=== PATIENT | male | born 1945 | race Caucasian/White ===

== ENCOUNTER 2019-06-25 11:10 | Inpatient (IN) | payer OTHER ==
[~2019-06-25] VITALS: Ht 182.9 cm; Wt 108.0 kg
--- NOTE | 2019-06-25 11:10 | NUR ---
PATIENT TO ROOM VIA EMS AND PHYSICIAN NOTIFID OF PATIENT STATUS
[2019-06-25 11:48] LABS: HEMATOCRIT 36.7 % (39.0-50.0); HEMOGLOBIN 12.1 g/dl (14.0-18.0); IMMATURE GRANULOCYTES 0.9 % (0.0-5.0); MEAN CELL VOLUME 88.6 fL CALC (80.0-100.0); MEAN CORPUSCULAR HGB 29.2 pG CALC (26.0-32.0); NEUT# 13.46 thou/uL (1.82-7.42); RED BLOOD COUNT 4.14 mill/uL (4.70-6.10); RED CELL DISTRI WIDTH 16.3 % (11.5-15.5)
[2019-06-25 12:14] LABS: ALBUMIN 3.7 g/dL (3.2-5.0); ALKALINE PHOSPHATASE 103 u/l (38-126); ANION GAP 12 (6-22 (CALC)); BILIRUBIN, TOTAL 0.7 mg/dL (0.0-1.4); BUN 34 mg/dL (8-23); BUN/CREATININE RATIO 29 (12-20 (CALC)); CARBON DIOXIDE 26 mmol/l (22-30); CHLORIDE 101 mmol/l (95-108); CREATININE 1.1 mg/dL (0.7-1.3); GFR > 60 ML/MIN (>=60 (CALC)); GFR FOR AFR.AMER. > 60 ML/MIN (>=60 (CALC)); LIPASE 21 u/l (23-300); POTASSIUM 4.5 mmol/l (3.5-5.1); SGOT/AST 21 u/l (19-48); SODIUM 134 mmol/l (137-146); TOTAL PROTEIN 6.8 g/dL (6.3-8.2)
--- NOTE | 2019-06-25 12:30 | NUR ---
PT PRESENTS FROM [facility] HOME WITH SOB. HE STATES THAT IT STARTED TODAY. HE HAS BI EDEMA IN LOWER EXTREMETIES THAT ARE OOZING EXUDATE. THEY ARE RED AND HOT TO THE TOUCH. PT STATES NOT KNOWING HOW LONG HE HAS HAD THEM THAT WAY. PT IN TRIPOD POSITION. LUNGS CRACKLES LOWER LOBES BI. SPO2 IN LOW 80s W/O O2. O2 AT 3 L GOING. WILL CONTINUE TO MONITOR.
--- NOTE | 2019-06-25 12:35 | NUR ---
AN ULCER OF 3 X3CM NOTED IN THE INNER RIGHT ANKLE. IT APPEARS TO BE OOZING WELL
--- NOTE | 2019-06-25 13:33 | NUR ---
PT SWABBED FOR COVID 19 VIRUS
--- NOTE | 2019-06-25 14:15 | NUR ---
ASSISTED PT TO URINATE IN URINAL. PT HAD SATURATED BRIEFS AND UNDERGARMETS. PT CHANGED INTO ANOTHER GOWN AND LINENS WELL.
[2019-06-25] MEDS ORDERED: PLAVIX75 MG PO (14:36)
[2019-06-25] MEDS ORDERED: METOPROL TAR25 MG PO (14:36)
[2019-06-25] MEDS ORDERED: LASIX 40 MG TAB40 MG PO (14:36)
[2019-06-25] MEDS ORDERED: LOSARTAN POTASS25 MG PO (14:37)
[2019-06-25 14:45] LABS: URINE BILIRUBIN - DIPSTICK NEGATIVE (NEGATIVE); URINE BLOOD DIPSTICK LARGE (NEGATIVE); URINE COLOR ORANGE; URINE GLUCOSE - DIPSTICK NEGATIVE (NEGATIVE); URINE KETONE NEGATIVE (NEGATIVE); URINE LEUK ESTERASE NEGATIVE (NEGATIVE); URINE NITRITE - DIPSTICK NEGATIVE (Negative); URINE PROTEIN - DIPSTICK 30 mg/dL (NEG-TRACE); URINE UROBILINOGEN - DIPSTICK 0.2 E.U./dL (0.2)
[2019-06-25 14:55] LABS: URINE RBC 50-100 RBC/hpf (0-5)
[2019-06-25 14:56] LABS: URINE BACTERIA FEW hpf; URINE MUCUS FEW hpf (NONE-FEW); URINE SQUAMOUS EPITHELIAL CELL FEW EPI/hpf (0-FEW)
--- NOTE | 2019-06-25 15:33 | NUR ---
PT RECONNECTED TO MONITORING EQUIPMENT, CALL LIGHT WITHIN REACH AND OFFICERS AT BEDSIDE. PT RESTING WITH EYES CLOSED. FLUIDS FLOWING IN PATENT IV
--- NOTE | 2019-06-25 16:30 | NUR ---
PT RESTING ON STRETCHER WITH CALL LIGHT WITHIN REACH AND OFFICERS AT BEDSIDE.
--- NOTE | 2019-06-25 17:21 | NUR ---
PT PREMED FOR CT. PT TOLERATED WELL. RECONNECTED TO FLUIDS. DENIES ANY NEEDS
--- NOTE | 2019-06-25 18:30 | NUR ---
PREPARING PT TO GO TO CT
--- NOTE | 2019-06-25 19:13 | NUR ---
PT RESTING WITH EYES CLOSED. OFFICERS AT BEDSIDE AND CALL LIGHT WITHIN REACH
--- NOTE | 2019-06-25 20:30 | NUR ---
PT RESTING WITH EYES CLOSED AND OFFICERS AT BEDSIDE. CALL LIGHT WITHIN REACH
--- NOTE | 2019-06-25 21:05 | NUR ---
UPON REASSESSMENT TEMP HAS DECREASED TO 98.9 F.
--- NOTE | 2019-06-25 21:43 | NUR ---
REPORT LELIA VILLA IN MED SURG
--- NOTE | 2019-06-25 21:50 | NUR ---
PT TRANSPORTED STABLE AND IN NO DISTRESS TO MED SURG WITH OFFICERS AT BEDSIDE. PT CARE ASSUMED TO FRAYA Admission Note Report Given to: Transported by: Wheelchair X Stretcher Transported with: X Nurse Transporter X Patent IV X O2 X Apartment Rental Agent Location: ICU X MS2
--- NOTE | 2019-06-25 21:55 | NUR ---
PT ARRIVED TO MED SURG UNIT VIA STRETCHER ACCOMPANIED BY ED NURSE. PT APPEARS TO BE IN STABLE CONDITION. PT WAS UNABLE TO SELF AMBULATE TO THE BED. SLIDER USED TO TRANSFER PT. NO DRESSING APPLIED TO RLE, ULCERS OBSERVED TO BE OOZING AT THIS TIME. V/S ASSESSED AND PT ORIENTED TO ROOM, CALL SYSTEM, LIGHTS, BED AND PO FLUIDS PROVIDED. GUARDS X2 AT BEDSIDE, ONE GUARD LEFT ROOM WHILE WE WERE IN ROOM TO "WARM UP HER FOOD." PT ASSESSMENT COMPLETED AT THIS TIME. DENIES COUGH, DENIES DIAHRREA, REPORTS 1X LARGE AMOUNT OF EMESIS EARLIER THIS DAY. DENIES N/V AT THIS TIME.
[2019-06-25 22:10] VITALS: BP 117/49
[2019-06-26] VITALS (7 sets, daily range): BP systolic 91–104; BP diastolic 35–44
--- NOTE | 2019-06-26 00:15 | NUR ---
PT MEDICATED FOR MILD PAIN IN LLE. NON-ADHERANT DRESSING AND RLE WRAPPED W/GAUZE PER PT REQUEST AND FOR SEROSANGUINEOUS DRAINAGE. HE STATES THAT IT "SMITH WHEN THE AIR CAN GET TO IT." PICTURES HAVE BEEN TAKEN AND PLACED IN CHART. PT ASSISTED USING URINAL. GUARDS X2 AT BEDSIDE, ONE STEPPED OUT WHILE WE WERE IN THE ROOM. PT DENIES NEED FOR ADDITIONAL PO FLUIDS OR SNACK OF ANY KIND. WATER PROVIDED. DENIES ANY DISTRESS AT THIS TIME. REPORTS MILD PAIN AND ASKED FOR MILD PAIN MEDICATION, TYELENOL PROVIDED.
--- NOTE | 2019-06-26 07:15 | NUR ---
CHANGE OF SHIFT REPORT RECEIVED FROM DIONE VILLA.
--- NOTE | 2019-06-26 09:30 | NUR ---
PT'S BP AT 98/42. NONI ANDERSON NOTIFIED. CABIN FURNISHINGS INSTALLER ADVISED TO HOLD BP MEDS, RECHECK BP IN AN HOUR OR TWO AND ADMINISTER BP MEDS AT THAT TIME IF BP INCREASES. PT ASSITED OUT OF SHOWER. WOUND CARE CARRIED OUT TO LEFT LOWER LEG. PT TOLERATED PROCEDURE. CABIN FURNISHINGS INSTALLER WILL CONTINUE TO MONITOR
--- NOTE | 2019-06-26 12:00 | NUR ---
PT RESTING COMFORTABLY IN ROOM. NO S/S OF DISTRESS. FLIGHT STEWARD WILL CONTINUE TO MONITOR
--- NOTE | 2019-06-26 15:00 | NUR ---
S: ELISABETH CUMMINGS is a 74 M who presents with pneumonia and cellulitis. He has a history of hypertension, CAD, osteoarthritis, aortic valve replacement. All medications in patient's chart were reviewed. O: VS: BP 92/42 mmhg, P 92 bpm, RR 20 breaths/min, T 97.8 F W 107.955 kg, HT 73 in, Scr 1.1 mg/dl, CrCl 88.6 ml/min A: Blood culture is pending. P: Patient is on cefepime 1g IV q12h. Vancomycin ordered for pharmacy to dose. Start Vancomycin 1g IV Q8H. Vancomycin trough is drawn before the 4th dose on 06/26 @ 1300. Vancomycin goal trough is between 15-20 mcg/ml. Pharmacy will follow and or advise on antibiotics use as needed.
--- NOTE | 2019-06-26 16:00 | NUR ---
PT RESTING COMFORTABLY IN ROOM. NO ADVERSE REACTIONS TO ANTIBIOTICS NOTED. NEW WOUND CARE ORDER IN CHART. PT IS ABLE TO MAKE HIS NEEDS KNOWN. ASSISTANT CLINICAL DIRECTOR WILL CONTINUE TO MONITOR.
--- NOTE | 2019-06-26 19:15 | NUR ---
DISCUSSED WITH BORING MACHINE SET UP OPERATOR, GUARDS TO WEAR N95 MASKS, MASKS AND FACESHIELDS PROVIDED BY BORING MACHINE SET UP OPERATOR. PT RESTING IN BED, NO SIGNS OF DISTRESS NOTED, RESP EVEN AND UNLABORED, DISCUSSED POC, DRESSING TO LLE CDI. ASSESSMENT COMPLETED, CALL LIGHT IN REACH,CONTINUE TO MONITOR.
--- NOTE | 2019-06-26 21:25 | NUR ---
PT RESTING IN BED, C/O PAIN TO LLE, NOT TIME FOR TYLENOL PT STATES AT FACILITY PT RECEIVED IBUPROFEN 600 AND IT WORKED FOR HIM, NOTIFIED AND ORDER RECEIVED. PT MEDICATED PER APR, GUARDS X2 AT BEDSIDE, WILL RETURN WHEN IBUPROFEN PROFILED. CALL LIGHT IN REACH,CONTINUE TO MONITOR.
--- NOTE | 2019-06-26 22:10 | NUR ---
PT RESTING IN BED WATCHING TV, MEDICATED WITH IBUPROFEN GIVEN. PT VOICES NO OTHER NEEDS OR COMPLAINTS AT THIS TIME, CALL LIGHT IN REACH,CONTINUE TO MONITOR.
[2019-06-27] VITALS (7 sets, daily range): BP systolic 104–128; BP diastolic 39–54
--- NOTE | 2019-06-27 01:27 | NUR ---
IV ANTIBIOTIC INITIATED, PT VOICES NO NEEDS OR COMPLAINTS, PT WATCHING TV, GUARDS X2 AT BEDSIDE, CALL LIGHT IN REACH,CONTINUE TO MONITOR.
--- NOTE | 2019-06-27 08:30 | NUR ---
RECIEVED REPORT FROM Simran JEFFREY LPN. PT RESTING IN BED WATCHIING TV UPON ENTERING ROOM. ASSESMENT AND VITALS COMPLETE. BP 111/43, HR 82, O2 97% ON 2L. PT IS A/O X3. HEART RHYTHM NORMAL, LUNGS SOUNDS CLEAR, BOWEL SOUNDS ACTIVE IN ALL QUADRANTS. LAST BM WAS 06/26/19.RADIAL AND RIGHT PEDAL PULSES ARE STRONG WITH NORMAL CAPPILLARY REFILL. DRESSING CDI ON LEFT FOOT, UNABLE TO PALPATE FOR PULSE DUE TO DRESSING BUT NORMAL CAPILLARY REFILL. SKIN IS COOL AND DRY TO TOUCH, NO EDEMA. IV FLUSHED, SITE APPEARS HEALTHY AND PATENT.TELE IN PLACE. PT DESCRIBED A 5/10 PAIN IN LEFT LEG, MOTRIN GIVEN. COVID RAPID NEGATIVE WITH SWAB PENDING, ISOLATION PRECAUTIONS IN PLACE. PT DENIES ANY OTHER DISCOMFORTS AT THIS TIME. ALL SAFTEY PRECAUTIONS IN PLACE WITH CALL LIGHT IN REACH. WILL CONTINUE TO MONITOR.
[2019-06-27 11:22] LABS: HEMATOCRIT 32.2 % (39.0-50.0); HEMOGLOBIN 10.6 g/dl (14.0-18.0); MEAN CELL VOLUME 89.9 fL CALC (80.0-100.0); MEAN CORPUSCULAR HGB 29.6 pG CALC (26.0-32.0); MEAN CORPUSCULAR HGB CONC 32.9 g/dL CAL (32.0-36.0); RED BLOOD COUNT 3.58 mill/uL (4.70-6.10); RED CELL DISTRI WIDTH 16.1 % (11.5-15.5)
[2019-06-27 11:33] LABS: ALKALINE PHOSPHATASE 69 u/l (38-126); ANION GAP 9 (6-22 (CALC)); BUN 35 mg/dL (8-23); BUN/CREATININE RATIO 37 (12-20 (CALC)); CARBON DIOXIDE 26 mmol/l (22-30); CHLORIDE 105 mmol/l (95-108); GFR > 60 ML/MIN (>=60 (CALC)); GFR FOR AFR.AMER. > 60 ML/MIN (>=60 (CALC)); POTASSIUM 4.1 mmol/l (3.5-5.1); SGOT/AST 27 u/l (19-48); SODIUM 137 mmol/l (137-146)
[2019-06-27 11:34] LABS: BILIRUBIN, TOTAL 0.4 mg/dL (0.0-1.4)
--- NOTE | 2019-06-27 12:23 | NUR ---
AT BEDSIDE ASSESSING AND DRESSING WOUND TO LEFT LEG.
--- NOTE | 2019-06-27 14:04 | NUR ---
PT RESTING IN SEMI FOWLERS POSITION WATCHING TV . BREATHING IS EVEN AND UNLABORED. PT DENIES OF ANY PAIN OR DISCOMFORTS AT THIS TIME. TELE IN PLACE, SR RATE 69, PER ER MONITOR.GUARDS AT BED SIDE. ALL SAFTEY PRECAUTIONS IN PLACE WITH CALL LIGHT IN REACH. WILL CONTINUE TO MONITOR.
--- NOTE | 2019-06-27 16:09 | NUR ---
PT RESTING IN SEMI FOWLERS POSITION WATCHING TV. RESPIRATIONS ARE EVEN AND UNLABORED. TELE IS IN PLACE. PT DENIES ANY PAIN OR DISCOMFORTS AT THIS TIME. ALL SAFTEY PRECAUTIONS IN PLACE WITH CALL LIGHT IN REACH AND BED IN THE LOWEST POSITION. ENCOURAGED PT TO CALL FOR ASSISTANCE IF NEEDED. WILL CONTINUE TO MONITOR.
--- NOTE | 2019-06-27 21:15 | NUR ---
PT RESTING IN BED, ALERT AND ORIENTED. RESPIRATIONS EVEN AND UNLABORED ON O2 @ 2L VIA NC. LUNGS SOUND DIMINISHED. PEDAL PULSES WEAK. PT ASSISTED UP TO THE RESTROOM, WITH WALKER, STAND BY ASSIST. PT LINENS CHANGED, PT WASHED HIMSELF UP IN THE BATHROOM, ASSISTED BACK TO BED. TELE IN PLACE. CALL HUITRON WITHIN REACH. ALIX X2 AT BEDSIDE. WILL CONTINUE TO MONITOR.
--- NOTE | 2019-06-28 01:12 | NUR ---
PT RESTING IN BED, RESPIRATIONS EVEN AND UNLABORED ON O2 @ 2L VIA NC. SAFETY PRECAUTIONS IN PLACE. WILL CONTINUE TO MONITOR.
[2019-06-28 04:00] VITALS: BP 121/48
--- NOTE | 2019-06-28 04:07 | NUR ---
PT RESTING IN BED. NO S/S OF DISTRESS AT THIS TIME. SAFETY PRECAUTIONS IN PLACE. WILL CONTINUE TO MONTIOR.
[2019-06-28 07:45] VITALS: BP 120/58
--- NOTE | 2019-06-28 07:45 | NUR ---
PT RESTING IN BED, NO SIGNS OF DISTRESS NOTED, RESP EVEN AND UNLABORED. PT ALERT AND ORIENTED X3, GUARDS X2 AT BEDSIDE. DISCUSSED POC, PT AGREES TO LAB DRAW. VSS, LABS DRAWN, PT TOLERATED WELL. DRESSING TO LLE CDI, ASSESSMENT COMPLETED, CALL LIGHT IN REACH,CONTINUE TO MONITOR.
--- NOTE | 2019-06-28 07:56 | NUR ---
S: ELISABETH CUMMINGS is a 74 M who presents with pneumonia and cellulitis. He has a history of hypertension, CAD, osteoarthritis, aortic valve replacement. All medications in patient's chart were reviewed. O: VS: BP 109/39 mmhg, P 76 bpm, RR 20 breaths/min, T 98 F W 107.955 kg, HT 73 in, Scr 1.1 mg/dl, CrCl 88.6 ml/min A: Blood culture is pending. P: Patient is on cefepime 1g IV q12h. Vancomycin ordered for pharmacy to dose. Trough was 12 today we will recheck in 2 days. Keep Vancomycin 1g IV Q8H. Vancomycin trough is drawn before the dose on 06/28 @ 1300. Vancomycin goal trough is between 15-20 mcg/ml. Pharmacy will follow and or advise on antibiotics use as needed.
[2019-06-28 08:10] LABS: HEMOGLOBIN 11.1 g/dl (14.0-18.0); MEAN CORPUSCULAR HGB 29.1 pG CALC (26.0-32.0); MEAN CORPUSCULAR HGB CONC 32.6 g/dL CAL (32.0-36.0); RED BLOOD COUNT 3.82 mill/uL (4.70-6.10); RED CELL DISTRI WIDTH 15.8 % (11.5-15.5)
[2019-06-28 08:23] LABS: ALBUMIN 2.8 g/dL (3.2-5.0); ALKALINE PHOSPHATASE 79 u/l (38-126); ANION GAP 10 (6-22 (CALC)); BUN 28 mg/dL (8-23); BUN/CREATININE RATIO 36 (12-20 (CALC)); CARBON DIOXIDE 26 mmol/l (22-30); CHLORIDE 104 mmol/l (95-108); CREATININE 0.8 mg/dL (0.7-1.3); GFR > 60 ML/MIN (>=60 (CALC)); GFR FOR AFR.AMER. > 60 ML/MIN (>=60 (CALC)); POTASSIUM 4.1 mmol/l (3.5-5.1); SGOT/AST 23 u/l (19-48); SODIUM 135 mmol/l (137-146); TOTAL PROTEIN 5.6 g/dL (6.3-8.2)
[2019-06-28 08:33] LABS: BILIRUBIN, TOTAL 0.6 mg/dL (0.0-1.4)
[2019-06-28 11:05] VITALS: BP 124/49
--- NOTE | 2019-06-28 11:18 | NUR ---
PT C/O PAIN TO LLE MEDICATED WITH MOTRIN, CALL LIGHT IN REACH,CONTINUE TO MONITOR.
--- NOTE | 2019-06-28 12:19 | NUR ---
RECEIVED NEGATIVE RESULTS FROM NARAYAN IN THE LAB, PT AND GUARDS NOTIFIED OF NEGATIVE COVID, PT TRANSPORTED TO ROOM 274 VIA WHEELCHAIR TOLERATED WELL. CALL LIGHT IN REACH,CONTINUE TO MONITOR.
[2019-06-28 15:20] VITALS: BP 112/45
[2019-06-28 19:46] VITALS: BP 127/85
--- NOTE | 2019-06-28 21:15 | NUR ---
PT RESTING IN BED WITH EYES CLOSED. RESPIRATINS EVEN AND UNLABORED ON O2 @ 2L VIA NC. PEDAL PULSES WEAK. PT DENIES ANY PAIN OR DISCOMFORT AT THIS TIME. SAFETY PRECAUTIONS IN [place]. WILL CONTINUE TO MONITOR.
[2019-06-29 00:08] VITALS: BP 138/65
--- NOTE | 2019-06-29 00:26 | NUR ---
PT RESTING IN BED, WITH EYES CLOSED, RESPIRATIONS EVEN AND UNLABORED ON O2 @ 2L VIA NC. NO S/S OF DISTRESS AT THIS TIME. SAFETY PRECAUTIONS IN PLACE. WILL CONTINUE TO MONITOR.
[2019-06-29 03:15] VITALS: BP 124/55
--- NOTE | 2019-06-29 04:21 | NUR ---
PT RESTING IN BED. RESPIRATIONS EVEN AND UNLABORED ON O2 @ 2L VIA NC. NO S/S OF DISTRESS AT THIS TIME. TELE IN PLACE. CALL HUITRON WITHIN REACH, WILL CONTINUE TO MONITOR.
[2019-06-29 07:08] VITALS: BP 115/45
--- NOTE | 2019-06-29 07:08 | NUR ---
PT RESTING IN BED, NO SIGNS OF DISTRESS NOTED, RESP EVEN AND UNLABORED, PT ALERT AND ORIENTED X3, GUARDS X2 AT BEDSIDE. DISCUSSED POC, PT VOICES NO NEEDS OR COMPLAINTS AT THIS TIME, IV VANCO INFUSING. DRESSING TO LLE CDI. ASSESSMENT COMPLETED, CALL LIGHT IN REACH, CONTINUE TO MONITOR.
--- NOTE | 2019-06-29 09:30 | NUR ---
PT GETTING WASHED UP, DISCUSSED MEDICATIONS, PT DECLINED TO TAKE LOSARTAN AND METOPROLOL. GUARDS X2 AT BEDSIDE, CALL LIGHT IN REACH,CONTINUE TO MONITOR.
[2019-06-29 11:09] VITALS: BP 103/51
--- NOTE | 2019-06-29 12:54 | NUR ---
PT RESTING IN BED, GUARDS X2 AT BEDSIDE, DISCUSSED IV ANTIBIOTIC AND LAB DRAW, PT VERBALIZED UNDERSTANDING. CALL LIGHT IN REACH,CONTINUE TO MONITOR.
--- NOTE | 2019-06-29 14:10 | NUR ---
S: ELISABETH CUMMINGS is a 74 M who presents with CELLULITIS AND PNEUMONIA. He has a history of CELLULITIS. All medications in patient's chart were reviewed. O: VS: BP 103/51, P 85, RR 21,T 97.8 A: Blood culture is pending P: Patient is on CEFEPIME. Vancomycin ordered for pharmacy to dose. TROUGH IS 19 ON 06/29/19 Start Vancomycin 1000MG IV Q8H. Vancomycin trough is drawn before the 4th dose on 06/29/18 1300. Vancomycin goal trough is between <15-20 mcg/ml>. Pharmacy will follow and or advise on antibiotics use as needed. HARISH BOSS PHARMD
[2019-06-29 15:00] VITALS: BP 108/52
--- NOTE | 2019-06-29 17:52 | NUR ---
PT RESTING IN BED, GUARDS AT BEDSIDE. NO SIGNS OF DISTRESS NOTED, RESP EVEN AND UNLABORED. CALL LIGHT IN REACH,CONTINUE TO MONITOR.
[2019-06-29 19:00] VITALS: BP 112/61
--- NOTE | 2019-06-29 20:45 | NUR ---
PT RESTING IN BED. ALERT AND ORIENTED. RESPIRATIONS EVEN AND UNLABORED ON O2 @ 2L VIA NC. LUNGS SOUND CLEAR. PEDAL PULSES WEAK. PT DENIES ANY PAIN OR DISCOMFORT AT THIS TIME. GAURDS X2 AT BEDSIDE. SAFETY PRECAUTIONS IN PLACE. WILL CONTINUE TO MONITOR.
--- NOTE | 2019-06-30 00:30 | NUR ---
PT RESTING IN BED. NO S/S OF DISTRESS AT THIS TIME. CALL HUITRON WITHIN REACH. WILL CONTINUE TO MONITOR.
--- NOTE | 2019-06-30 04:04 | NUR ---
PT RESTING IN BED WITH EYES CLOSED. NO S/S OF DISTRESS AT THIS TIME. SAFETY PRECAUTIONS IN PLACE. WILL CONTINUE TO MONITOR.
[2019-06-30 04:36] VITALS: BP 115/71
[2019-06-30 05:14] LABS: HEMATOCRIT 35.3 % (39.0-50.0); HEMOGLOBIN 11.7 g/dl (14.0-18.0); IMMATURE GRANULOCYTES 0.7 % (0.0-5.0); MEAN CELL VOLUME 88.5 fL CALC (80.0-100.0); MEAN CORPUSCULAR HGB 29.3 pG CALC (26.0-32.0); MEAN CORPUSCULAR HGB CONC 33.1 g/dL CAL (32.0-36.0); NEUT# 6.88 thou/uL (1.82-7.42); RED BLOOD COUNT 3.99 mill/uL (4.70-6.10); RED CELL DISTRI WIDTH 15.3 % (11.5-15.5)
[2019-06-30 05:21] LABS: ANION GAP 7 (6-22 (CALC)); BUN 21 mg/dL (8-23); BUN/CREATININE RATIO 29 (12-20 (CALC)); CARBON DIOXIDE 30 mmol/l (22-30); CHLORIDE 102 mmol/l (95-108); CREATININE 0.7 mg/dL (0.7-1.3); GFR > 60 ML/MIN (>=60 (CALC)); GFR FOR AFR.AMER. > 60 ML/MIN (>=60 (CALC)); SODIUM 134 mmol/l (137-146)
--- NOTE | 2019-06-30 07:15 | NUR ---
REPORT RECEIVED FROM DIONE HAAS;PT APPEARS TO BE SLEEPING IN SEMI FOWLERS POSITION WITH X2 GUARDS AT BEDSIDE;NO S/S OF DISTRESS NOTED;RESPIRATIONS EVEN AND UNLABORED ON RA;ALL SAFETY PRECAUTIONS REMAIN IN PLACE WITH BED IN THE LOWEST POSITION AND CALL LIGHT IN REACH;WILL CONTINUE TO MONITOR
[2019-06-30 09:24] VITALS: BP 125/62
--- NOTE | 2019-06-30 09:25 | NUR ---
PT RESTING IN SEMI FOWLERS POSITION WITH X2 GUARDS AT BEDSIDE AND RIGHT ANKLE SHAKLED TO BEDSIDE,A&O X3;VS OBTAINED AND ASSESSMENT COMPLETED;PT DENIES ANY CURRENT PAIN OR DISCOMFORTS,PAIN SCALE AND REPORTING EDUCATED;RESPIRATIONS EVEN AND UNLABORED ON RA,CLEAR LUNG SOUNDS;ABDOMEN DISTENDED/SOFT ON PALPATION AND ACTIVE IN ALL 4 QUADRANTS;STRONG RIGHT PEDAL PULSES,UNABLE TO ASSESS LEFT DUE TO DRESSING IN PLACE;DRESSING TO LLE CDI;#20G TO RAC FLUSHED AND PATENT,SITE APPEARS HEALTHY;PT DENIES ANY ADDITIONAL NEEDS AND IS ENCOURAGED TO CALL FOR ASSISTANCE IF NEEDED;FALL PRECAUTIONS IN PLACE WITH CALL LIGHT IN REACH;WILL CONTINUE TO MONITOR
--- NOTE | 2019-06-30 11:10 | NUR ---
PT APPEARS TO BE SLEEPING IN SEMI FOWLERS POSITION WITH X2 GUARDS AT BEDSIDE;RESPIRATIONS EVEN AND UNLABORED ON RA;NO S/S OF DISTRESS NOTED;ASSESSMENT REMAINS THE SAME AT THIS TIME;SAFETY PRECAUTIONS REMAIN IN PLACE WITH CALL LIGHT IN REACH;WILL CONTINUE TO MONITOR
--- NOTE | 2019-06-30 12:28 | NUR ---
AT BEDSIDE DISCUSSING POC WITH PT.
[2019-06-30] MEDS ORDERED: DOXYCYCL HYC100 MG PO (12:30)
[2019-06-30 15:36] VITALS: BP 114/57
--- NOTE | 2019-06-30 15:50 | NUR ---
PT RESTING IN SEMI FOWLERS POSITION WITH X2 GUARDS AT BEDSIDE AND RIGHT ANKLE SHACKLED TO BEDSIDE;RESPIRATIONS REMAIN EVEN AND UNLABORED ON RA;PT DENIES ANY CURRENT PAIN OR NEEDS;IV ABX INFUSING WITH EASE PER ORDER;AWAITING WOUND CARE FOR LLE DRESSING CHANGE PRIOR TO D/C HOME TO [facility];PT DENIES ANY ADDITIONAL NEEDS AND IS ENCOURAGED TO CALL FOR ASSISTANCE IF NEEDED;CALL LIGHT IN REACH;WILL CONTINUE TO MONITOR
--- NOTE | 2019-06-30 16:05 | NUR ---
(WOUND CARE) AT BEDSIDE CHANGING LLE DRESSING CHANGE.
--- NOTE | 2019-06-30 16:40 | NUR ---
ALL DISCHARGE INSTRUCTIONS PROVIDED AT THIS TIME;PT INSTRUCTED TO F/U WITH THE [facility] C[facility] AND TAKE PO DOXY PRESCRIBED.RX FOR DOXY PROVIDED TO GUARD FOR D/C BACK TO [facility];AWAITING ABX TO BE COMPLETED FOR D/C.WILL CONTINUE TO MONITOR
--- NOTE | 2019-06-30 17:46 | NUR ---
PT MEDICATED WITH PRN MOTRIN 600MG PO FOR LLE PAIN RATING 9/10 ON THE PAIN SCALE,WILL CONTINUE TO MONITOR
--- NOTE | 2019-06-30 18:13 | NUR ---
Discharge instructions given. Patient verbalizes understanding of same. [facility] stable [facility]. All belongings sent with pt. PT TRANSPORTED TO [facility] IN STABLE CONDITION VIA WHEELCHAIR ACCOMPANIED BY SARAH BAKER AND X2 GUARDS.[facility] TO [facility]SP[facility] PT.
== END 2019-06-30 18:13 | DRG 194 ==
LOC: ED 11:10 → ED-I 11:45 → ED 11:45 → ED-I 13:37 → ED 20:07 → ED-I 20:08 → MS2 21:00
PROVIDERS: Family Medicine; Nurse Practitioner Family; ADMIT Internal Medicine; ATTEND Internal Medicine
DX: J18.9 Pneumonia, unspecified organism (principal); I87.312 Chronic venous hypertension (idiopathic) with ulcer of left lower extremity; L97.828 Non-pressure chronic ulcer of other part of left lower leg with other specified severity; L03.116 Cellulitis of left lower limb; I10 Essential (primary) hypertension; I71.4 Abdominal aortic aneurysm, without rupture; I25.10 Atherosclerotic heart disease of native coronary artery without angina pectoris; M19.90 Unspecified osteoarthritis, unspecified site; Z95.5 Presence of coronary angioplasty implant and graft; Z95.3 Presence of xenogenic heart valve; Z88.1 Allergy status to other antibiotic agents; Z79.02 Long term (current) use of antithrombotics/antiplatelets; Z20.828 Contact with and (suspected) exposure to other viral communicable diseases
CPT/HCPCS: G0378; J0692; J1650; Q9967